=== PATIENT | male | born 1955 | race Caucasian/White ===

== ENCOUNTER 2022-06-07 08:15 | Day surgery (SDC) | payer OTHER, BC ==
[2022-06-05 14:28] VITALS: BMI 26.4
[2022-06-07 11:23] VITALS: TEMP 98
[2022-06-07 11:29] VITALS: BP 102/64; PULSE 68; RESP 20
== END 2022-06-07 10:40 | disposition home or self-care (01) ==
LOC: FASU-ENDO 08:15
PROVIDERS: ATTEND Internal Medicine Gastroenterology
PROC: 0DBN8ZX Excision of Sigmoid Colon, Via Natural or Artificial Opening Endoscopic, Diagnostic (ICD-10-PCS; 2022-06-07)
PROC: 0DBK8ZX Excision of Ascending Colon, Via Natural or Artificial Opening Endoscopic, Diagnostic (ICD-10-PCS; principal; 2022-06-07 09:17)
DX: Z12.11 Encounter for screening for malignant neoplasm of colon (principal); D12.2 Benign neoplasm of ascending colon; K63.5 Polyp of colon; K57.30 Diverticulosis of large intestine without perforation or abscess without bleeding
CPT/HCPCS: 88305-TC

== ENCOUNTER 2024-09-15 10:22 | Observation (INO) | payer OTHER, BC ==
[2024-09-15 11:47] VITALS: BMI 25.1
[2024-09-15 12:33] LABS: ABSOLUTE IMMATURE GRANULOCYTES 0.02 x10^3/uL (0.0-0.031); BASOPHILS # 0.01 x10^3/uL (0.01-0.08); EOSINOPHIL % 0.7 % (0.8-7.0); EOSINOPHILS # 0.04 x10^3/uL (0.04-0.54); MCHC 31.5 g/dl (32.3-36.5); MEAN CELL VOLUME 91.9 fl (79.0-92.2); MEAN PLT VOLUME 10.1 fl (9.4-12.4); MONOCYTE # 0.69 x10^3/uL (0.30-0.82); MONOCYTE % 11.9 % (5.3-12.2); RDW 12.6 % (12.2-16.4)
[2024-09-15 12:34] LABS: BG HCT 41.0 % (35.4-49); VENOUS BASE EXCESS 2.5 mmol/L (-2-2); VENOUS O2 SATURATION 60.6 % (70-80); VENOUS PCO2 51.8 mmHg (38-52); VENOUS PH 7.365 (7.310-7.410)
[2024-09-15 12:47] LABS: INR 1.04 (0.83-1.09); PROTHROMBIN TIME (PATIENT) 11.3 SEC (9.7-13.0)
[2024-09-15 12:50] LABS: ACTIVATED PTT 32.4 SECONDS (25.2-36.5)
[2024-09-15 12:53] LABS: CO2 28.0 mmol/L (21-32); GLUCOSE,RANDOM 119.0 mg/dL (74-106)
[2024-09-15 12:56] LABS: CREATININE 1.1 mg/dL (0.55-1.3); SGOT/AST 21.0 U/L (15-37); SGPT/ALT 23.0 U/L (13-61)
[2024-09-15 12:58] LABS: TOT PROT 6.1 g/dl (6.4-8.2)
[2024-09-15 12:59] LABS: ALK PHOS 77.0 U/L (45-117)
[2024-09-15 14:31] LABS: URINE APPEARANCE Error; URINE BILIRUBIN NEGATIVE (NEGATIVE); URINE COLOR YELLOW; URINE GLUCOSE (UA) NEGATIVE (NEGATIVE); URINE KETONE TRACE (NEGATIVE); URINE LEUK ESTERASE NEGATIVE (NEGATIVE); URINE NITRITE NEGATIVE (NEGATIVE); URINE PROTEIN TRACE (NEGATIVE); URINE UROBILINOGEN 0.2 mg/dL (0.2-1.0)
[2024-09-15] MEDS: ATORVASTATIN CA 10 MG TABLET (FP) PO SCH (21:26)
[2024-09-15] MEDS: BENZOCAINE/MENTH/CETYLPYRD CL 1 EACH LOZENGE MM ONE (22:28)
[2024-09-16 07:37] LABS: MCHC 32.0 g/dl (32.3-36.5); MEAN CELL VOLUME 91.7 fl (79.0-92.2); MEAN PLT VOLUME 10.0 fl (9.4-12.4); RDW 12.5 % (12.2-16.4)
[2024-09-16 10:14] VITALS: BP 127/84; PULSE 77; RESP 18; TEMP 98.1
[2024-09-16] MEDS ORDERED: HEPARIN NA (PORCINE) 5,000 UNITS/ML 1ML VIAL SQ SCH (22:00)
== END 2024-09-16 12:30 | disposition home or self-care (01) ==
LOC: JER 10:22 → JERBED 14:49 → J4S 17:06
PROVIDERS: ADMIT Internal Medicine
DX: J06.9 Acute upper respiratory infection, unspecified (principal); B34.9 Viral infection, unspecified; R55 Syncope and collapse; D50.9 Iron deficiency anemia, unspecified; D69.6 Thrombocytopenia, unspecified; K57.92 Diverticulitis of intestine, part unspecified, without perforation or abscess without bleeding
CPT/HCPCS: 36415; 71045-TC-FY; 80053; 81003; 82803; 83605; 84484; 85025; 85610; 85730; 86850; 86900; 86901; 87040; 87086; 87637-QW; 93005; 93010; 93306-TC; 99285-25; G0378